=== PATIENT | female | born 1985 ===

== ENCOUNTER 2019-12-16 10:05 | Inpatient (IN) | payer BC ==
[~2019-12-16] VITALS: Ht 149.9 cm; Wt 75.0 kg
[2019-12-16] MEDS: LACTATED RINGERS 1,000 ML IV SCH (11:00)
[2019-12-16] MEDS ORDERED: D5%-LACTATED RINGERS 1,000 ML IV SCH (21:55)
[2019-12-16] MEDS ORDERED: OXYTOCIN 30U/ 0.9% NaCL 500ML 500 ML IV PRN (21:55)
[2019-12-16] MEDS ORDERED: OXYTOCIN 30U/ 0.9% NaCL 500ML 500 ML IV ONE (21:55)
[2019-12-16] MEDS ORDERED: FENTANYL PF 100 MCG/2ML IV PRN (22:00)
[2019-12-16] MEDS ORDERED: METOCLOPRAMIDE 5 MG/ML, 2ML IVPush PRN (22:00)
[2019-12-16] MEDS ORDERED: TERBUTALINE 1 MG/ML, 1ML IVPush PRN (22:00)
[2019-12-16] MEDS ORDERED: ONDANSETRON 2MG/ML, 2ML IVPush PRN (22:00)
[2019-12-16] MEDS ORDERED: SODIUM CITRATE/CITRIC ACID 30 ML UDC PO PRN (22:00)
[2019-12-16] MEDS ORDERED: TERBUTALINE 1 MG/ML, 1ML SQ PRN (22:00)
[2019-12-16] MEDS ORDERED: FENTANYL PF 100 MCG/2ML IVPush PRN (22:00)
[2019-12-16 22:20] LABS: BASOPHILS # (AUTO) 0.03 x10^3/uL (0-0.1); BASOPHILS % (AUTO) 0 % (0-1); EOSINOPHILS # (AUTO) 0.04 x10^3/uL (0-0.4); EOSINOPHILS % (AUTO) 1 % (1-7); LYMPHOCYTES # (AUTO) 2.25 x10^3/uL (1-3.4); LYMPHOCYTES % (AUTO) 23 % (22-44); MD NO; MEAN CORPUSCULAR HEMOGLOBIN 29.2 pg (27.0-34.8); MEAN CORPUSCULAR HGB CONC 33.6 g/dL (32.4-35.8); MEAN CORPUSCULAR VOLUME 86.8 fL (80-100); MEAN PLATELET VOLUME 8.2 fL (7.4-10.4); MONOCYTES # (AUTO) 0.62 x10^3/uL (0.2-0.8); MONOCYTES % (AUTO) 6 % (2-9); NEUTROPHILS # (AUTO) 6.91 x10^3/uL (1.8-6.8); NEUTROPHILS % (AUTO) 70 % (42-75); PLATELET COUNT 232 x10^3/uL (130-400); RED BLOOD COUNT 3.66 x10^6/uL (3.82-5.3)
[2019-12-16] MEDS ORDERED: MISOPROSTOL 25 MCG TABLET ONE (22:22)
[2019-12-16] MEDS: PLEASE ENTER HEIGHT AND WEIGHT MC SCH (22:30)
[2019-12-16] MEDS: MISOPROSTOL 25 MCG TABLET VG PRN (23:15)
[2019-12-16] MEDS ORDERED: NEWBORN KIT ONE (23:49)
[2019-12-17] MEDS ORDERED: MISOPROSTOL 25 MCG TABLET ONE (03:24)
[2019-12-17] MEDS: MISOPROSTOL 25 MCG TABLET VG PRN ×2 (03:34→03:35)
[2019-12-17] MEDS: PLEASE ENTER HEIGHT AND WEIGHT MC SCH ×3 (06:30→22:30)
[2019-12-17] MEDS ORDERED: MISOPROSTOL 200 MCG TABLET ONE (07:47)
[2019-12-17] MEDS ORDERED: OXYTOCIN 30U/ 0.9% NaCL 500ML 1,000 ML ONE (07:47)
[2019-12-17] MEDS ORDERED: LIDOCAINE 1%, 20ML ONE (07:47)
[2019-12-17] MEDS ORDERED: FENTANYL PF 100 MCG/2ML ONE (08:54)
[2019-12-17] MEDS ORDERED: FENTANYL/BUPIV./NS/PF 0 ML EPIDCONT ONE (08:54)
[2019-12-17] MEDS ORDERED: BUPIVACAINE 0.25% ONE (08:54)
[2019-12-17] MEDS ORDERED: FENTANYL/BUPIV./NS/PF 250 ML EPIDCONT SCH (09:03)
[2019-12-17] MEDS ORDERED: LACTATED RINGERS 1,000 ML IV SCH (09:03)
[2019-12-17] MEDS ORDERED: FENTANYL/BUPIV./NS/PF 250 ML EPIDCONT ONE (09:05)
[2019-12-17] MEDS ORDERED: EPHEDRINE 50 MG/ML, 1ML IVPush PRN (09:30)
[2019-12-17] MEDS ORDERED: LACTATED RINGERS 1,000 ML IVBOLUS PRN (09:30)
[2019-12-17] MEDS: LACTATED RINGERS 1,000 ML IV SCH (14:30)
[2019-12-17] MEDS ORDERED: TERBUTALINE 1 MG/ML, 1ML ONE (14:54)
[2019-12-17] MEDS ORDERED: ONDANSETRON 2MG/ML, 2ML ONE (20:34)
[2019-12-17] MEDS ORDERED: OXYTOCIN 30U/ 0.9% NaCL 500ML 500 ML IV PRN (21:20)
[2019-12-17] MEDS ORDERED: CALCIUM CARBONATE 500 MG TAB.CHEW ONE (23:05)
[2019-12-17] MEDS ORDERED: CALCIUM CARBONATE 500 MG TAB.CHEW PO PRN (23:30)
[2019-12-18] MEDS ORDERED: CARBOPROST TROMETHAMINE 250 MCG/ML, 1ML IM ONE (02:12)
[2019-12-18] MEDS: OXYTOCIN 30U/ 0.9% NaCL 500ML 500 ML IV SCH ×3 (02:31→22:31)
[2019-12-18] MEDS ORDERED: IBUPROFEN 600 MG TABLET ONE (02:39)
[2019-12-18] MEDS ORDERED: OXYcodone/APAP 5/325MG TABLET ONE (02:39)
[2019-12-18] MEDS ORDERED: ONDANSETRON 2MG/ML, 2ML ONE (02:54)
[2019-12-18] MEDS ORDERED: SIMETHICONE 80 MG CHEW TAB PO PRN (03:00)
[2019-12-18] MEDS ORDERED: ACETAMINOPHEN 325 MG TABLET PO PRN (03:00)
[2019-12-18] MEDS ORDERED: MISOPROSTOL 200 MCG TABLET PR PRN (03:00)
[2019-12-18] MEDS ORDERED: CARBOPROST TROMETHAMINE 250 MCG/ML, 1ML IM PRN (03:00)
[2019-12-18] MEDS ORDERED: OXYcodone/APAP 5/325MG TABLET PO PRN (03:00)
[2019-12-18] MEDS ORDERED: RHOGAM FROM BLOOD BANK 1 NOTE EA IM/IV ONE (03:00)
[2019-12-18] MEDS ORDERED: METHYLERGONOVINE 0.2 MG/ML IM PRN (03:00)
[2019-12-18] MEDS ORDERED: ONDANSETRON 2MG/ML, 2ML IV PRN (03:00)
[2019-12-18] MEDS: IBUPROFEN 800 MG TABLET PO PRN ×3 (04:25→19:36)
[2019-12-18] MEDS ORDERED: IBUPROFEN 800 MG TABLET ONE (04:25)
[2019-12-18 05:00] VITALS: BP 110/70
[2019-12-18 07:30] VITALS: BP 110/74
[2019-12-18] MEDS ORDERED: METHYLERGONOVINE 0.2 MG/ML IM ONE (08:00)
[2019-12-18] MEDS: PRENATAL VIT/IRON/FA 1 EACH TABLET PO SCH (09:00)
[2019-12-18] MEDS: OXYcodone/APAP 5/325MG TABLET PO PRN ×3 (09:33→19:36)
[2019-12-18 11:13] LABS: BASOPHILS # (AUTO) 0.04 x10^3/uL (0-0.1); BASOPHILS % (AUTO) 0 % (0-1); EOSINOPHILS # (AUTO) 0.01 x10^3/uL (0-0.4); EOSINOPHILS % (AUTO) 0 % (1-7); LYMPHOCYTES # (AUTO) 1.59 x10^3/uL (1-3.4); LYMPHOCYTES % (AUTO) 7 % (22-44); MD SCAN; MEAN CORPUSCULAR HEMOGLOBIN 28.7 pg (27.0-34.8); MEAN CORPUSCULAR HGB CONC 32.3 g/dL (32.4-35.8); MEAN CORPUSCULAR VOLUME 88.8 fL (80-100); MEAN PLATELET VOLUME 8.2 fL (7.4-10.4); MONOCYTES # (AUTO) 0.82 x10^3/uL (0.2-0.8); MONOCYTES % (AUTO) 4 % (2-9); NEUTROPHILS # (AUTO) 19.08 x10^3/uL (1.8-6.8); NEUTROPHILS % (AUTO) 89 % (42-75); PLATELET COUNT 171 x10^3/uL (130-400); RED BLOOD COUNT 3.03 x10^6/uL (3.82-5.3); RED CELL DISTRIBUTION WIDTH 14.9 % (9.6-15.2)
[2019-12-18 12:20] VITALS: BP 94/60
[2019-12-18] MEDS: DOCUSATE 100 MG CAPSULE PO PRN ×2 (12:55→19:36)
[2019-12-18 16:25] VITALS: BP 107/68
[2019-12-18 20:30] VITALS: BP 106/69
[2019-12-19 00:30] VITALS: BP 98/62
[2019-12-19 07:30] VITALS: BP 107/72
[2019-12-19] MEDS: PRENATAL VIT/IRON/FA 1 EACH TABLET PO SCH (08:09)
[2019-12-19] MEDS: DOCUSATE 100 MG CAPSULE PO PRN ×2 (08:09→19:45)
[2019-12-19] MEDS: IBUPROFEN 800 MG TABLET PO PRN ×2 (08:09→17:13)
[2019-12-19] MEDS: OXYcodone/APAP 5/325MG TABLET PO PRN (13:26)
[2019-12-19 20:00] VITALS: BP 113/72
[2019-12-19 23:40] VITALS: BP 110/68
[2019-12-20] MEDS: IBUPROFEN 800 MG TABLET PO PRN ×2 (02:20→12:40)
[2019-12-20] MEDS: DOCUSATE 100 MG CAPSULE PO PRN (07:35)
[2019-12-20] MEDS: PRENATAL VIT/IRON/FA 1 EACH TABLET PO SCH (07:35)
[2019-12-20 07:45] VITALS: BP 106/69
[2019-12-20] MEDS ORDERED: IBUP-1222 PO (14:14)
[2019-12-20] MEDS ORDERED: FERR325T5 PO (14:14)
[2019-12-20] MEDS ORDERED: DOCU-131 PO (14:14)
== END 2019-12-20 15:30 | disposition home or self-care (01) | DRG 807 ==
LOC: LDIP 21:16 → 2NW 12-18 04:40
PROVIDERS: ADMIT Obstetrics & Gynecology; ATTEND Obstetrics & Gynecology
PROC: 3E033VJ Introduction of Other Hormone into Peripheral Vein, Percutaneous Approach (ICD-10-PCS; principal; 2019-12-18)
PROC: 10E0XZZ Delivery of Products of Conception, External Approach (ICD-10-PCS; 2019-12-18)
PROC: 0KQM0ZZ Repair Perineum Muscle, Open Approach (ICD-10-PCS; 2019-12-18)
DX: O80 Encounter for full-term uncomplicated delivery (principal); Z37.0 Single live birth; O70.1 Second degree perineal laceration during delivery; Z3A.39 39 weeks gestation of pregnancy
CPT/HCPCS: 36415; J7121; 82803; 85025; 86592; 86850; 86900; 87635; G0378; J2405; J2210; J2590; J7120